=== PATIENT | female | born 1990 | race Caucasian/White ===

== ENCOUNTER → 2020-05-04 | Outpatient (CLI) | payer BC ==
[~2020-05-04] MED LIST: AMITRIPTYLINE H50 M1 PO; AMOXICILLIN 8751 TAB PO; CELEXA40 MG PO; CLEOCIN HC150 MG/CAP PO; CLEOCIN HCL300 MG PO; GLUCOPHAGE500 MG/TAB PO; IMITREX 25MG TA25 MG PO; NEURONTIN300 MG/CAP PO; NORCO 325 MG-51 TAB PO; RITALIN 20M20 MG/TAB PO; SAFYRAL1 TAB PO; SYNTHROID0.175 MG PO; TENEX PO; ZOMIG5 MG PO
== END ==
LOC: COL.VAS 08:22
DX: M79.89 Other specified soft tissue disorders (principal)